=== PATIENT | female | born 1960 | race Asian ===

== ENCOUNTER 2018-06-22 10:30 | Emergency (ER) | payer OTHER ==
[~2018-06-22] VITALS: Ht 152.4 cm; Wt 67.1 kg
[~2018-06-22 10:30] MED LIST: ALLO100T PO; ATOR20TA64 PO; CALC0.258 PO; FLUT1DIS5 INH; HYDR-3924 PO; INSU100V11 SQ; INSU10VI4 SUBCUT; LOSA50TA3 PO; NEU300 PO; PIRB14AE2 IH; PRO40 PO; SIMV40TA2 PO
[2018-06-22 10:45] VITALS: BP_SYST 132
--- NOTE | 2018-06-22 10:45 | NUR ---
Patient to ER bed 7 to gown for evaluation. Side rails up.
--- NOTE | 2018-06-22 10:46 | NUR ---
ER Dr. Castañeda at bedside examining patient.
--- NOTE | 2018-06-22 10:50 | NUR ---
Pt presents to ER c/o L knee pain 5/10 on pain scale since Monday. Pt reports that she was attempting to sit down on her desk, she went down a little to fast, pt reports increased pain and swelling since incident. Upon arrival to ER, no deformity noted, mild swelling, no redness, pt unable to bend L knee due to pain, able to ambulate but chooses not to because she states "I do not want to aggravate it". Pt denies chest pain, sob, nausea or vomiting. Pt given ice to apply to L knee upon placement in ER bed 7.
[2018-06-22] MEDS ORDERED: KETOROLAC TROMETHAMINE 60 MG/2 ML VIAL IM ONE (11:00)
--- NOTE | 2018-06-22 11:10 | NUR ---
Patient transported to radiology via wheelchair, accompanied by rad staff.
--- NOTE | 2018-06-22 11:21 | NUR ---
Returned from radiology, back to [facility].
[2018-06-22 12:15] VITALS: BP_SYST 132
--- NOTE | 2018-06-22 12:15 | NUR ---
Patient given written and verbal discharge instructions and verbalizes understanding. ER MD discussed with patient the results and treatment provided. Patient in stable condition. ID arm band removed. Rx of Naprosyn given. Patient educated on pain management and to follow up with PMD. Pain Scale 3/10. Opportunity for questions provided and answered. Medication side effect fact sheet provided.
== END 2018-06-22 12:15 | disposition home or self-care (01) ==
LOC: SED 10:30
DX: M76.52 Patellar tendinitis, left knee (principal); E11.29 Type 2 diabetes mellitus with other diabetic kidney complication; N28.9 Disorder of kidney and ureter, unspecified; J45.909 Unspecified asthma, uncomplicated; I10 Essential (primary) hypertension; Z90.49 Acquired absence of other specified parts of digestive tract; Z90.710 Acquired absence of both cervix and uterus; Z88.2 Allergy status to sulfonamides; Z88.8 Allergy status to other drugs, medicaments and biological substances; Z79.899 Other long term (current) drug therapy
CPT/HCPCS: 73560; 96372; 99284; J1885

== ENCOUNTER 2018-09-03 15:49 | Inpatient (IN) | payer OTHER ==
[~2018-09-03] VITALS: Ht 152.4 cm; Wt 66.3 kg
[2018-09-03 16:13] VITALS: BP_SYST 144
[2018-09-03 18:41] LABS: EOSINOPHILS # (AUTO) 0.5 K/uL (0.0-0.4)
[2018-09-03 18:46] LABS: HEMATOCRIT 34.7 % (36-48); PLATELET COUNT (AUTO) 260 K/uL (130-430)
[2018-09-03 18:59] LABS: CALCIUM 9.4 mg/dL (8.4-11.0); POTASSIUM 4.4 mmol/L (3.5-5.1)
[2018-09-03 19:01] LABS: BASOPHILS # (AUTO) 0.1 K/uL (0.0-0.2); BASOPHILS % (AUTO) 0.9 % (0.0-2.0); EOSINOPHILS % (AUTO) 3.4 % (0.0-4.0); HEMOGLOBIN 11.5 g/dL (12.0-16.0); LYMPHOCYTES # (AUTO) 1.6 K/uL (1.0-5.5); LYMPHOCYTES % (AUTO) 11.7 % (20.5-51.5); MEAN CORPUSCULAR HEMOGLOBIN 31 pg (27-31); MEAN CORPUSCULAR HGB CONC 33 % (32-36); MEAN CORPUSCULAR VOLUME 95 fL (79.0-98.0); MONOCYTES # (AUTO) 0.6 K/uL (0.0-1.0); MONOCYTES % (AUTO) 4.5 % (1.7-9.3); NEUTROPHILS # (AUTO) 10.7 K/uL (1.8-7.7); NEUTROPHILS % (AUTO) 79.5 % (40.0-70.0); RED BLOOD CELL COUNT(AUTO) 3.66 MIL/uL (4.2-6.2); RED CELL DISTRIBUTION WIDTH 15.2 % (9.0-15.0); WHITE BLOOD COUNT (AUTO) 13.5 K/uL (4.8-10.8)
[2018-09-03 19:14] LABS: ALANINE AMINOTRANSFERASE 425 U/L (12-78); ALBUMIN 2.9 g/dL (3.4-4.8); ANION GAP 16 (5-15); ASPARTATE AMINOTRANSFERASE 539 U/L (10-37); CHLORIDE 94 mmol/L (98-107); SODIUM SERUM 132 mmol/L (136-145); TOTAL BILIRUBIN 0.4 mg/dL (0.0-1.0)
[2018-09-03 19:26] LABS: GFR AFRICAN AMERICAN 5 mL/min (>90)
[2018-09-03 19:27] LABS: CREATININE 10.14 mg/dL (0.55-1.30)
[2018-09-03 19:28] LABS: UREA NITROGEN, BLOOD 109 mg/dL (8-21)
[2018-09-03 19:29] LABS: GLUCOSE 437 mg/dL (70-99)
[2018-09-03] MEDS ORDERED: INSULIN REGULAR, HUMAN 10 UNITS/0.1 ML INJ IVP ONE (19:30)
[2018-09-03] MEDS ORDERED: NACL 0.9% 1,000 ML IV ONE (21:45)
[2018-09-03 21:56] VITALS: BP_SYST 129
[2018-09-03] MEDS: NORMAL SALINE 5 ML DISP.SYRIN IVF SCH (23:25)
[2018-09-04] VITALS: BP_SYST 113
[2018-09-04] MEDS ORDERED: cloNIDine HCL 0.1 MG TABLET PO PRN
[2018-09-04 01:10] VITALS: BP_SYST 129
[2018-09-04] MEDS: NORMAL SALINE 5 ML DISP.SYRIN IVF SCH ×3 (06:24→21:18)
[2018-09-04] MEDS: INSULIN REGULAR, HUMAN 100 UNITS/ML, 10 ML VIAL (novoLIN R) SUBCUT PRN ×4 (06:31→21:13)
[2018-09-04 07:25] VITALS: BP_SYST 101
[2018-09-04 10:22] LABS: BASOPHILS # (AUTO) 0.1 K/uL (0.0-0.2); BASOPHILS % (AUTO) 1.1 % (0.0-2.0); EOSINOPHILS # (AUTO) 0.5 K/uL (0.0-0.4); EOSINOPHILS % (AUTO) 3.8 % (0.0-4.0); HEMATOCRIT 30.8 % (36-48); HEMOGLOBIN 10.4 g/dL (12.0-16.0); LYMPHOCYTES # (AUTO) 1.6 K/uL (1.0-5.5); LYMPHOCYTES % (AUTO) 13.1 % (20.5-51.5); MEAN CORPUSCULAR HEMOGLOBIN 32 pg (27-31); MEAN CORPUSCULAR HGB CONC 34 % (32-36); MEAN CORPUSCULAR VOLUME 94 fL (79.0-98.0); MONOCYTES # (AUTO) 0.4 K/uL (0.0-1.0); MONOCYTES % (AUTO) 3.4 % (1.7-9.3); NEUTROPHILS # (AUTO) 9.5 K/uL (1.8-7.7); NEUTROPHILS % (AUTO) 78.6 % (40.0-70.0); PLATELET COUNT (AUTO) 264 K/uL (130-430); RED BLOOD CELL COUNT(AUTO) 3.28 MIL/uL (4.2-6.2); RED CELL DISTRIBUTION WIDTH 14.9 % (9.0-15.0); WHITE BLOOD COUNT (AUTO) 12.1 K/uL (4.8-10.8)
[2018-09-04 10:32] LABS: CALCIUM 9.8 mg/dL (8.4-11.0); POTASSIUM 4.6 mmol/L (3.5-5.1)
[2018-09-04 10:38] LABS: CREATININE 9.8 mg/dL (0.55-1.30)
[2018-09-04 10:39] LABS: ALBUMIN 2.7 g/dL (3.4-4.8); TOTAL BILIRUBIN 0.5 mg/dL (0.0-1.0)
[2018-09-04 10:57] VITALS: BP_SYST 120
[2018-09-04 16:33] VITALS: BP_SYST 120
[2018-09-04 19:47] VITALS: BP_SYST 129
[2018-09-05 00:49] VITALS: BP_SYST 123
[2018-09-05] MEDS: INSULIN REGULAR, HUMAN 100 UNITS/ML, 10 ML VIAL (novoLIN R) SUBCUT PRN ×4 (06:12→20:44)
[2018-09-05] MEDS: NORMAL SALINE 5 ML DISP.SYRIN IVF SCH ×2 (06:17→14:00)
[2018-09-05 08:00] VITALS: BP_SYST 136
[2018-09-05 12:00] VITALS: BP_SYST 115
[2018-09-05 13:23] LABS: ANION GAP 13 (5-15); CALCIUM 9.8 mg/dL (8.4-11.0); CHLORIDE 96 mmol/L (98-107); GLUCOSE 287 mg/dL (70-99); POTASSIUM 3.7 mmol/L (3.5-5.1); SODIUM SERUM 132 mmol/L (136-145)
[2018-09-05 13:24] LABS: BASOPHILS % (AUTO) 0.5 % (0.0-2.0); EOSINOPHILS # (AUTO) 0.5 K/uL (0.0-0.4); EOSINOPHILS % (AUTO) 5.1 % (0.0-4.0); GFR AFRICAN AMERICAN 6 mL/min (>90); HEMATOCRIT 34.9 % (36-48); HEMOGLOBIN 11.3 g/dL (12.0-16.0); LYMPHOCYTES # (AUTO) 1.5 K/uL (1.0-5.5); LYMPHOCYTES % (AUTO) 16.1 % (20.5-51.5); MEAN CORPUSCULAR HEMOGLOBIN 31 pg (27-31); MEAN CORPUSCULAR HGB CONC 32 % (32-36); MEAN CORPUSCULAR VOLUME 94 fL (79.0-98.0); MONOCYTES # (AUTO) 0.6 K/uL (0.0-1.0); MONOCYTES % (AUTO) 6.4 % (1.7-9.3); NEUTROPHILS # (AUTO) 6.5 K/uL (1.8-7.7); NEUTROPHILS % (AUTO) 71.9 % (40.0-70.0); PLATELET COUNT (AUTO) 293 K/uL (130-430); WHITE BLOOD COUNT (AUTO) 9.1 K/uL (4.8-10.8)
[2018-09-05 13:38] LABS: ALANINE AMINOTRANSFERASE 444 U/L (12-78); ALBUMIN 3.1 g/dL (3.4-4.8); ASPARTATE AMINOTRANSFERASE 479 U/L (10-37); TOTAL BILIRUBIN 0.5 mg/dL (0.0-1.0)
[2018-09-05 13:45] LABS: UREA NITROGEN, BLOOD 114 mg/dL (8-21)
[2018-09-05 13:46] LABS: CREATININE 9.35 mg/dL (0.55-1.30)
[2018-09-05 16:00] VITALS: BP_SYST 122
[2018-09-05 20:05] VITALS: BP_SYST 124
[2018-09-05] MEDS: NACL 0.9% 1,000 ML IV SCH (20:40)
[2018-09-05 23:43] VITALS: BP_SYST 117
[2018-09-06] MEDS: NACL 0.9% 1,000 ML IV SCH ×2 (06:15→20:07)
[2018-09-06] MEDS: INSULIN REGULAR, HUMAN 100 UNITS/ML, 10 ML VIAL (novoLIN R) SUBCUT PRN ×4 (06:21→20:11)
[2018-09-06 06:31] LABS: BASOPHILS # (AUTO) 0.1 K/uL (0.0-0.2); BASOPHILS % (AUTO) 0.5 % (0.0-2.0); EOSINOPHILS # (AUTO) 0.6 K/uL (0.0-0.4); EOSINOPHILS % (AUTO) 5.6 % (0.0-4.0); HEMATOCRIT 33.5 % (36-48); HEMOGLOBIN 11.1 g/dL (12.0-16.0); LYMPHOCYTES # (AUTO) 2.2 K/uL (1.0-5.5); LYMPHOCYTES % (AUTO) 18.9 % (20.5-51.5); MEAN CORPUSCULAR HEMOGLOBIN 31 pg (27-31); MEAN CORPUSCULAR HGB CONC 33 % (32-36); MEAN CORPUSCULAR VOLUME 95 fL (79.0-98.0); MONOCYTES % (AUTO) 8.9 % (1.7-9.3); NEUTROPHILS # (AUTO) 7.6 K/uL (1.8-7.7); NEUTROPHILS % (AUTO) 66.1 % (40.0-70.0); PLATELET COUNT (AUTO) 269 K/uL (130-430); RED BLOOD CELL COUNT(AUTO) 3.54 MIL/uL (4.2-6.2); RED CELL DISTRIBUTION WIDTH 14.8 % (9.0-15.0); WHITE BLOOD COUNT (AUTO) 11.5 K/uL (4.8-10.8)
[2018-09-06 06:49] LABS: ALBUMIN 2.7 g/dL (3.4-4.8); CALCIUM 9.9 mg/dL (8.4-11.0); PHOSPHORUS 8.2 mg/dL (2.7-4.5); POTASSIUM 3.6 mmol/L (3.5-5.1); TOTAL BILIRUBIN 0.5 mg/dL (0.0-1.0)
[2018-09-06 07:04] LABS: CREATININE 8.16 mg/dL (0.55-1.30)
[2018-09-06 12:00] VITALS: BP_SYST 118
[2018-09-06 16:00] VITALS: BP_SYST 121
[2018-09-06 20:10] VITALS: BP_SYST 148
[2018-09-06 23:42] VITALS: BP_SYST 106
[2018-09-07] MEDS: NACL 0.9% 1,000 ML IV SCH (06:14)
[2018-09-07] MEDS: INSULIN REGULAR, HUMAN 100 UNITS/ML, 10 ML VIAL (novoLIN R) SUBCUT PRN (06:20)
[2018-09-07 08:04] VITALS: BP_SYST 134
[2018-09-07 08:36] VITALS: BP_SYST 134
[2018-09-07 10:16] VITALS: BP_SYST 134
== END 2018-09-07 10:55 | disposition home health service (06) | DRG 557 ==
LOC: SED 15:49 → STU 21:37
PROVIDERS: ADMIT Internal Medicine Hospice and Palliative Medicine; ATTEND Internal Medicine Hospice and Palliative Medicine
PROC: 3E1M39Z Irrigation of Peritoneal Cavity using Dialysate, Percutaneous Approach (ICD-10-PCS; principal; 2018-09-04)
PROC: 3E1M39Z Irrigation of Peritoneal Cavity using Dialysate, Percutaneous Approach (ICD-10-PCS; 2018-09-05)
PROC: 3E1M39Z Irrigation of Peritoneal Cavity using Dialysate, Percutaneous Approach (ICD-10-PCS; 2018-09-06)
DX: M62.82 Rhabdomyolysis (principal); N18.6 End stage renal disease; Q61.3 Polycystic kidney, unspecified; I12.0 Hypertensive chronic kidney disease with stage 5 chronic kidney disease or end stage renal disease; D63.1 Anemia in chronic kidney disease; E11.65 Type 2 diabetes mellitus with hyperglycemia; E78.5 Hyperlipidemia, unspecified; J45.909 Unspecified asthma, uncomplicated; E11.22 Type 2 diabetes mellitus with diabetic chronic kidney disease; Z99.2 Dependence on renal dialysis; Z88.2 Allergy status to sulfonamides; Z88.8 Allergy status to other drugs, medicaments and biological substances; Z79.899 Other long term (current) drug therapy; Z90.49 Acquired absence of other specified parts of digestive tract; Z90.710 Acquired absence of both cervix and uterus
CPT/HCPCS: 36415; 80053; 82550-TC; 82553-TC; 82962; 84100-TC; 85025; 93005; 94660; 96374; 99285; J1815; J7030